=== PATIENT | male | born 1990 | race African-American/Black ===

== ENCOUNTER 2022-10-03 20:56 | Emergency (ER) | payer OTHER ==
[~2022-10-03] VITALS: Ht 185.4 cm; Wt 74.8 kg
--- NOTE | 2022-10-03 21:29 | NUR ---
COVID ANTIGEN SWAB COLLECTED AND SENT TO LAB
--- NOTE | 2022-10-03 22:41 | NUR ---
called lab, another 8 min for covid result
--- NOTE | 2022-10-03 22:48 | NUR ---
Patient discharged to home in stable condition. Written and verbal after care instructions given. Patient verbalizes understanding of instruction. Pt ambulatory with a steady gait. Pt escorted out with [employer]
[2022-10-03 23:03] VITALS: BP 134/80
== END 2022-10-03 22:48 ==
LOC: ER 21:06
DX: Z02.89 Encounter for other administrative examinations (principal); Z20.822 Contact with and (suspected) exposure to COVID-19
CPT/HCPCS: 99283; 87426; C9803